=== PATIENT | male | born 1950 | race Caucasian/White ===

== ENCOUNTER 2024-05-07 11:38 | Inpatient (IN) | payer MEDICARE, BC ==
[~2024-05-07] VITALS: Ht 182.9 cm; Wt 100.0 kg
[2024-05-07 12:02] VITALS: PULSE 85; RESP 16; O2SAT 96
[2024-05-07] MEDS: SODIUM CHLORIDE 0.9% 1,000 ML IV ONE (12:02)
[2024-05-07 13:17] LABS: Hemoglobin 14.8 g/dL (13.5-17.5); Mean Corpuscular Hgb Conc. 34.4 g/dL (32.0-36.0); Mean Corpuscular Volume 95.9 fL (80.0-100.0); Platelet Count (auto) 229 10^3/uL (140-450); Red Blood Cells 4.48 10^6/uL (4.5-5.90); Red Cell Distribution Width 15.1 % (11.8-14.3); White Blood Cell 11.6 10^3/uL (4.4-10.8)
[2024-05-07] MEDS: ONDANSETRON HCL 4 MG/2 ML VIAL IV ONE (13:22)
[2024-05-07] MEDS: MORPHINE SULFATE INJ 2 MG/ml SYRG IV ONE (13:23)
[2024-05-07 13:31] LABS: Basophils % (manual) 0 (0.0-2.0); Blast Cells 0; Eosinophils % (manual) 0 (0-7); Metamyelocytes % 0; Myelocytes % 0; Promyelocytes % 0; Reactive Lymphocytes 0
[2024-05-07 13:32] LABS: Alanine Aminotransferase 23 U/L (7-40); Albumin 4.6 g/dL (3.2-4.8); Alkaline Phosphatase 61 U/L (46-116); Anion Gap 7 (5-15); Aspartate Aminotransferase 17 U/L (13-40); BUN/Creatinine Ratio 15.4 (10.0-20.0); Bilirubin, Total 0.9 mg/dL (0.2-1.0); Blood Urea Nitrogen 21 mg/dL (9-23); Calcium 9.6 mg/dL (8.7-10.4); Carbon Dioxide 24 mmol/L (20-30); Chloride 107 mmol/L (98-107); Glucose 117 mg/dL (74-106); Potassium 4.3 mmol/L (3.5-5.1); Sodium 138 mmol/L (136-145); Total Protein 7.2 g/dL (5.7-8.2)
[2024-05-07 16:40] LABS: Band Neutrophils % (manual) 14; Lymphocytes % (manual) 4 (10.0-50.0); Monocytes % (manual) 2 (0-12); Platelet Estimate Adequate
[2024-05-07 16:41] LABS: Macrocytosis Slight
[2024-05-07] MEDS ORDERED: HYDROcodone-ACET 5/325MG TAB PO PRN (17:00)
[2024-05-07] MEDS ORDERED: MORPHINE SULFATE INJ 2 MG/ml SYRG IV PRN ×2 (17:00)
[2024-05-07] MEDS ORDERED: ACETAMINOPHEN 325 MG TAB PO PRN (17:00)
[2024-05-07] MEDS ORDERED: hydrALAZINE HCL 20 MG/ML VL IV PRN (17:00)
[2024-05-07] MEDS ORDERED: NITROGLYCERIN 0.4 MG SL TAB SL PRN (17:00)
[2024-05-07] MEDS ORDERED: ONDANSETRON HCL 4 MG/2 ML VIAL IV PRN (17:00)
[2024-05-07] MEDS ORDERED: DOCUSATE SOD 100 MG CAP PO PRN (17:00)
[2024-05-07] MEDS: cefTRIAXone 1GM/50ML D5W 50 ML IV ONE (17:48)
[2024-05-07] MEDS: metroNIDAZOLE 500MG/100ML 100 ML IV ONE (18:28)
[2024-05-07 22:00] VITALS: BP 133/82; PULSE 73; RESP 18; TEMP 99.1; O2SAT 94
[2024-05-07 22:20] VITALS: BP 133/82; PULSE 73; RESP 18; TEMP 99.1; O2SAT 94
[2024-05-07] MEDS ORDERED: METO25TA93 PO (22:44)
[2024-05-07] MEDS ORDERED: FENO54TA4 PO (22:44)
[2024-05-07] MEDS ORDERED: ATOR40TA52 PO (22:44)
[2024-05-07] MEDS ORDERED: LOSA-534 PO (22:44)
[2024-05-07] MEDS: FAMOTIDINE (10MG/ML) 2ML VL IV SCH (23:06)
[2024-05-07] MEDS: metroNIDAZOLE 500MG/100ML 100 ML IV SCH (23:18)
[2024-05-08] VITALS (9 sets, daily range): BP systolic 113–143; BP diastolic 62–88; PULSE 55–69; RESP 16–18; TEMP 97.8–98.7; O2SAT 94–96
[2024-05-08 06:08] LABS: Basophils # (auto) 0 10 ^3/uL (0-0.2); Basophils % (auto) 0.3 % (0.0-2.0); Eosinophils # (auto) 0 10 ^3/uL (0-0.8); Eosinophils % (auto) 0.6 % (0.0-7.0); Hemoglobin 13.5 g/dL (13.5-17.5); Lymphocytes # (auto) 0.6 10 ^3/uL (0.4-5.4); Lymphocytes % (auto) 8.9 % (10.0-50.0); Mean Corpuscular Hemoglobin 33.2 pg (28.0-32.0); Mean Corpuscular Hgb Conc. 34.6 g/dL (32.0-36.0); Monocytes # (auto) 0.6 10 ^3/uL (0-1.3); Monocytes % (auto) 9.3 % (0.0-12.0); Neutrophils # (auto) 5.4 10 ^3/uL (1.6-8.6); Neutrophils % (auto) 80.9 % (37.0-80.0); Nucleated Red Blood Cells % 0.1 %; Platelet Count (auto) 192 10^3/uL (140-450); Red Blood Cells 4.06 10^6/uL (4.5-5.90); Red Cell Distribution Width 14.6 % (11.8-14.3); White Blood Cell 6.7 10^3/uL (4.4-10.8)
[2024-05-08 06:27] LABS: Alanine Aminotransferase 20 U/L (7-40); Albumin 4.2 g/dL (3.2-4.8); Alkaline Phosphatase 54 U/L (46-116); Anion Gap 7 (5-15); Aspartate Aminotransferase 15 U/L (13-40); BUN/Creatinine Ratio 13.2 (10.0-20.0); Blood Urea Nitrogen 17 mg/dL (9-23); Calcium 8.8 mg/dL (8.7-10.4); Carbon Dioxide 23 mmol/L (20-30); Chloride 109 mmol/L (98-107); Glucose 112 mg/dL (74-106); Potassium 3.6 mmol/L (3.5-5.1); Sodium 139 mmol/L (136-145)
[2024-05-08 06:28] LABS: Bilirubin, Total 0.6 mg/dL (0.2-1.0); Total Protein 6.6 g/dL (5.7-8.2)
[2024-05-08 13:00] LABS: LDL Cholesterol 86 mg/dL (< 100); Triglycerides 116 mg/dL (< 150)
[2024-05-08 13:01] LABS: Cholesterol 154 mg/dL (< 200); HDL Cholesterol 40 mg/dL (40-59)
[2024-05-08] MEDS: CIPROFLOXACIN 400MG/200ML 200 ML IV SCH (16:06)
[2024-05-08] MEDS: ATORVASTATIN 20 MG TAB PO SCH (21:51)
[2024-05-08] MEDS: LOSARTAN POTASSIUM 50 MG TAB PO ONE (21:52)
[2024-05-09] VITALS (13 sets, daily range): BP systolic 125–143; BP diastolic 74–82; PULSE 45–64; RESP 16–23; TEMP 97.4–97.9; O2SAT 93–99
[2024-05-09 00:27] LABS: Urine Bacteria None Seen /hpf (None Seen)
[2024-05-09 00:52] LABS: Urine Blood Negative /uL (Negative); Urine Clarity Clear (Clear); Urine Color Yellow (Yellow); Urine Mucus FEW (None Seen); Urine Protein, UAD Negative (Negative); Urine Specific Gravity 1.024 (1.001-1.035); Urine Urobilinogen Normal (Negative); Urine WBC 2 /hpf (0 - 3)
[2024-05-09 01:10] LABS: Amphetamine Screen, Urine Neg (NEGATIVE); Barbiturate Scree,Urine Neg (NEGATIVE); Benzodiazephine Screen, Urine Neg (NEGATIVE); Cannabinoid Screen, Urine Neg (NEGATIVE); Cocaine Screen, Urine Neg (NEGATIVE); Opiate Scree,Urine Neg (NEGATIVE); Phencyclidine Screen, Urine Neg (NEGATIVE)
[2024-05-09 05:49] LABS: Chloride 109 mmol/L (98-107); Potassium 3.4 mmol/L (3.5-5.1); Sodium 137 mmol/L (136-145)
[2024-05-09 05:50] LABS: Anion Gap 5 (5-15); Carbon Dioxide 23 mmol/L (20-30)
[2024-05-09 05:51] LABS: Calcium 8.6 mg/dL (8.7-10.4)
[2024-05-09 05:55] LABS: Glucose 106 mg/dL (74-106)
[2024-05-09 05:56] LABS: BUN/Creatinine Ratio 9.4 (10.0-20.0); Blood Urea Nitrogen 12 mg/dL (9-23)
[2024-05-09 05:57] LABS: Basophils # (auto) 0 10 ^3/uL (0-0.2); Basophils % (auto) 0.6 % (0.0-2.0); Eosinophils # (auto) 0.1 10 ^3/uL (0-0.8); Eosinophils % (auto) 1.7 % (0.0-7.0); Hematocrit 37.6 % (41.0-53.0); Lymphocytes # (auto) 1.5 10 ^3/uL (0.4-5.4); Mean Corpuscular Hemoglobin 33.3 pg (28.0-32.0); Mean Corpuscular Hgb Conc. 34.7 g/dL (32.0-36.0); Mean Corpuscular Volume 96.2 fL (80.0-100.0); Monocytes # (auto) 0.7 10 ^3/uL (0-1.3); Monocytes % (auto) 11.8 % (0.0-12.0); Neutrophils # (auto) 3.6 10 ^3/uL (1.6-8.6); Neutrophils % (auto) 60.9 % (37.0-80.0); Platelet Count (auto) 174 10^3/uL (140-450); Red Blood Cells 3.91 10^6/uL (4.5-5.90); Red Cell Distribution Width 14.5 % (11.8-14.3); White Blood Cell 5.9 10^3/uL (4.4-10.8)
[2024-05-09] MEDS ORDERED: LEVALBUTEROL HCL 1.25 MG/3 ML NEB NEB SCH (09:15)
[2024-05-09] MEDS: ERGOCALCIFEROL 50,000 UNIT(1.25MG) CAP PO SCH (10:22)
[2024-05-09] MEDS: PANTOPRAZOLE 40 MG TAB PO SCH (10:22)
[2024-05-09] MEDS: LOSARTAN POTASSIUM 50 MG TAB PO SCH (10:22)
[2024-05-09] MEDS: METOPROLOL SUCCINATE XL 50 MG TAB PO SCH (10:23)
[2024-05-09] MEDS: LEVALBUTEROL HCL 1.25 MG/3 ML NEB NEB SCH (11:37)
[2024-05-09] MEDS: POTASSIUM CHL 20MEQ/100ML 100 ML IV SCH (21:22)
[2024-05-10] VITALS (16 sets, daily range): BP systolic 122–151; BP diastolic 52–87; PULSE 45–68; RESP 16–19; TEMP 97.4–97.8; O2SAT 94–99
[2024-05-10] MEDS: CIPROFLOXACIN 400MG/200ML 200 ML IV SCH (02:12)
[2024-05-10 06:40] LABS: Anion Gap 8 (5-15); Carbon Dioxide 24 mmol/L (20-30); Chloride 109 mmol/L (98-107); Potassium 3.7 mmol/L (3.5-5.1); Sodium 141 mmol/L (136-145)
[2024-05-10 06:44] LABS: Basophils # (auto) 0 10 ^3/uL (0-0.2); Basophils % (auto) 0.5 % (0.0-2.0); Eosinophils # (auto) 0.1 10 ^3/uL (0-0.8); Eosinophils % (auto) 1.3 % (0.0-7.0); Hematocrit 37.1 % (41.0-53.0); Lymphocytes # (auto) 1.5 10 ^3/uL (0.4-5.4); Lymphocytes % (auto) 26.5 % (10.0-50.0); Mean Corpuscular Hemoglobin 33.2 pg (28.0-32.0); Mean Corpuscular Volume 94.9 fL (80.0-100.0); Monocytes # (auto) 0.6 10 ^3/uL (0-1.3); Monocytes % (auto) 10.5 % (0.0-12.0); Neutrophils # (auto) 3.5 10 ^3/uL (1.6-8.6); Neutrophils % (auto) 61.2 % (37.0-80.0); Platelet Count (auto) 183 10^3/uL (140-450); Red Blood Cells 3.91 10^6/uL (4.5-5.90); Red Cell Distribution Width 14.4 % (11.8-14.3); White Blood Cell 5.7 10^3/uL (4.4-10.8)
[2024-05-10 06:46] LABS: Blood Urea Nitrogen 9 mg/dL (9-23); Glucose 100 mg/dL (74-106)
[2024-05-10] MEDS: GOLYTELY 4L KIT PO ONE (16:54)
[2024-05-10 20:35] LABS: INR 1.13 (0.9-1.15); Partial Thromboplastin Time 28.6 SEC (24.5-34.5); Prothrombin Time 11.9 sec (9.3-11.8)
[2024-05-11] VITALS (13 sets, daily range): BP systolic 125–163; BP diastolic 64–93; PULSE 55–116; RESP 14–20; TEMP 97.5–98.5; O2SAT 93–99
[2024-05-11] MEDS: MAGNESIUM CITRATE SOLUTION 300 ML BTL PO ONE (06:00)
[2024-05-11 06:15] LABS: Calcium 9.2 mg/dL (8.7-10.4); Chloride 107 mmol/L (98-107); Potassium 3.8 mmol/L (3.5-5.1); Sodium 140 mmol/L (136-145)
[2024-05-11 06:16] LABS: Anion Gap 8 (5-15); Carbon Dioxide 25 mmol/L (20-30)
[2024-05-11 06:21] LABS: BUN/Creatinine Ratio 6.5 (10.0-20.0); Blood Urea Nitrogen 8 mg/dL (9-23); Glucose 94 mg/dL (74-106)
[2024-05-11] MEDS: GOLYTELY 4L KIT PO ONE (06:25)
[2024-05-11 07:03] LABS: Basophils # (auto) 0.1 10 ^3/uL (0-0.2); Basophils % (auto) 1.3 % (0.0-2.0); Eosinophils # (auto) 0.2 10 ^3/uL (0-0.8); Eosinophils % (auto) 2.6 % (0.0-7.0); Hematocrit 37.5 % (41.0-53.0); Hemoglobin 13.3 g/dL (13.5-17.5); Lymphocytes # (auto) 1.6 10 ^3/uL (0.4-5.4); Lymphocytes % (auto) 25.4 % (10.0-50.0); Mean Corpuscular Hemoglobin 33.4 pg (28.0-32.0); Mean Corpuscular Hgb Conc. 35.3 g/dL (32.0-36.0); Mean Corpuscular Volume 94.6 fL (80.0-100.0); Monocytes # (auto) 0.6 10 ^3/uL (0-1.3); Monocytes % (auto) 9.4 % (0.0-12.0); Neutrophils # (auto) 3.9 10 ^3/uL (1.6-8.6); Neutrophils % (auto) 61.3 % (37.0-80.0); Nucleated Red Blood Cells % 0.2 %; Platelet Count (auto) 187 10^3/uL (140-450); Red Blood Cells 3.96 10^6/uL (4.5-5.90); Red Cell Distribution Width 14.3 % (11.8-14.3); White Blood Cell 6.3 10^3/uL (4.4-10.8)
[2024-05-11] MEDS ORDERED: SIMETHICONE 40 MG/0.6 ML ORAL DROP ONE (07:59)
[2024-05-11] MEDS ORDERED: MIDAZOLAM HCL 2MG/2ML 2ml VIAL (1mg/ml) ONE (14:25)
[2024-05-11] MEDS ORDERED: fentaNYL CITRATE 100 MCG/2 ML VL ONE (14:25)
[2024-05-11] MEDS ORDERED: PROPOFOL 10 MG/ML 20 ML IV ONE (14:35)
[2024-05-11] MEDS ORDERED: ONDANSETRON HCL 4 MG/2 ML VIAL ONE (14:35)
[2024-05-11] MEDS ORDERED: PANT40T PO (16:28)
[2024-05-11] MEDS ORDERED: CIP500T PO (16:28)
[2024-05-11] MEDS ORDERED: ERGO1CAP23 PO (16:28)
[2024-05-11] MEDS ORDERED: MET500T PO (16:28)
[2024-05-16 13:07] LABS: Fecal Fats Neutral Normal (.); Fecal Fats Total Increased (.)
== END 2024-05-11 17:21 | disposition home or self-care (01) | DRG 392 ==
LOC: EDBD 11:38 → ER 11:38 → TELE 17:13 → TELE-WESTW 22:23 → WEST WING 05-08 09:29
PROVIDERS: ADMIT Internal Medicine Pulmonary Disease; ATTEND Internal Medicine Pulmonary Disease
PROC: 0DBL8ZX Excision of Transverse Colon, Via Natural or Artificial Opening Endoscopic, Diagnostic (ICD-10-PCS; 2024-05-11)
PROC: 0DBN8ZX Excision of Sigmoid Colon, Via Natural or Artificial Opening Endoscopic, Diagnostic (ICD-10-PCS; 2024-05-11)
PROC: 0DBM8ZX Excision of Descending Colon, Via Natural or Artificial Opening Endoscopic, Diagnostic (ICD-10-PCS; 2024-05-11)
PROC: 0DBK8ZX Excision of Ascending Colon, Via Natural or Artificial Opening Endoscopic, Diagnostic (ICD-10-PCS; principal; 2024-05-11 14:22)
DX: K52.9 Noninfective gastroenteritis and colitis, unspecified (principal); I10 Essential (primary) hypertension; E78.5 Hyperlipidemia, unspecified; E66.9 Obesity, unspecified; E87.6 Hypokalemia; E55.9 Vitamin D deficiency, unspecified; R73.03 Prediabetes; K64.8 Other hemorrhoids; Z82.49 Family history of ischemic heart disease and other diseases of the circulatory system; Z85.820 Personal history of malignant melanoma of skin; Q76.0 Spina bifida occulta; Z68.30 Body mass index [BMI] 30.0-30.9, adult; R00.1 Bradycardia, unspecified; K52.839 Microscopic colitis, unspecified
CPT/HCPCS: 36415; 71045; 74176; 76604; 76705; 80048; 80053; 80061; 80307; 81001; 82040; 82270; 82306; 82607; 82705; 83036; 83735; 83880; 84443; 84484; 85007; 85025; 85027; 85048; 85610; 85730; 87045; 87177; 87493; 93005; 94640; 99291; G0378; J2250; J2405; J2704; J3480; J3490